=== PATIENT | female | born 1980 | race Caucasian/White ===

== ENCOUNTER → 2020-11-28 | Outpatient (CLI) | payer MEDICAID, OTHER ==
[~2020-11-28] MED LIST: DOCU-131 PO; HYDR1TAB13 PO; IBUP-1222 PO; VENL150C PO
== END | disposition home or self-care (01) ==
LOC: STAR 08:25
PROVIDERS: ATTEND Obstetrics & Gynecology Female Pelvic Medicine and Reconstructive Surgery
DX: Z20.822 Contact with and (suspected) exposure to COVID-19 (principal); N81.6 Rectocele; N81.10 Cystocele, unspecified; N39.3 Stress incontinence (female) (male); R10.2 Pelvic and perineal pain
CPT/HCPCS: 87635

== ENCOUNTER 2020-12-04 09:31 | Day surgery (SDC) | payer MEDICAID, OTHER ==
[~2020-12-04] VITALS: Ht 162.6 cm; Wt 98.4 kg
[~2020-12-04 09:31] MED LIST changes: +BUPIVACAINE/PF 0.25% ONE
[2020-12-04 10:20] VITALS: BP 116/84
[2020-12-04] MEDS ORDERED: CHLORHEXIDINE 15 ML UDC ONE (10:24)
[2020-12-04] MEDS ORDERED: CHLORHEXIDINE 15 ML UDC MM ONE (10:30)
[2020-12-04] MEDS ORDERED: LACTATED RINGERS 1,000 ML IV SCH (10:30)
[2020-12-04] MEDS ORDERED: FENTANYL PF 100 MCG/2ML ONE ×2 (10:58→14:09)
[2020-12-04] MEDS ORDERED: MIDAZOLAM 1 MG/ML, 2ML ONE (10:58)
[2020-12-04] MEDS ORDERED: ONDANSETRON 2MG/ML, 2ML IVPush PRN ×2 (11:00→15:30)
[2020-12-04] MEDS ORDERED: PROMETHAZINE 25 MG/ML, 1ML IVPush PRN (11:00)
[2020-12-04] MEDS ORDERED: HYDROmorphone 1 MG/ML, 1ML INJ IVPush PRN (11:00)
[2020-12-04] MEDS ORDERED: HYDROcodone/APAP 7.5-325MG/15ML UDC PO PRN (11:00)
[2020-12-04] MEDS ORDERED: FENTANYL PF 100 MCG/2ML IV PRN (11:00)
[2020-12-04] MEDS ORDERED: KETOROLAC 30 MG/1 ML IVPush PRN (11:00)
[2020-12-04] MEDS ORDERED: OXYcodone 5 MG/5 ML ORAL.SOL UDC PO PRN (11:00)
[2020-12-04] MEDS ORDERED: MEPERIDINE/PF 25MG/0.5ML IVPush PRN (11:00)
[2020-12-04 12:12] LABS: HCG UR SG 1.024 (1.003-1.030)
[2020-12-04] MEDS ORDERED: PROPOFOL 10 MG/ML, 20ML ONE (12:20)
[2020-12-04] MEDS ORDERED: CEFAZOLIN 1,000 MG ONE (12:20)
[2020-12-04] MEDS ORDERED: SUCCINYLCHOLINE 20 MG/ML, 10ML ONE (12:20)
[2020-12-04] MEDS ORDERED: LIDOCAINE-MPF 2% ,5ML ONE (12:20)
[2020-12-04] MEDS ORDERED: ROCURONIUM 10MG/ML,5ML ONE (12:20)
[2020-12-04] MEDS ORDERED: LIDOCAINE 4%, 4 ML SYR/CANN TP ONE (12:20)
[2020-12-04] MEDS ORDERED: SUGAMMADEX 200 MG/2 ML IVPush ONE (12:20)
[2020-12-04] MEDS ORDERED: PHENYLEPHRINE 10 MG/ML ONE (12:20)
[2020-12-04] MEDS ORDERED: HYDROcodone/APAP 7.5-325MG/15ML UDC ONE (14:21)
[2020-12-04] MEDS ORDERED: NEOMY/POLYMYXIN B GU IRR. 1 ML ONE (14:51)
== END 2020-12-04 16:30 | disposition home or self-care (01) ==
LOC: OUT 09:31
PROVIDERS: ATTEND Obstetrics & Gynecology Female Pelvic Medicine and Reconstructive Surgery
DX: N39.3 Stress incontinence (female) (male) (principal); N94.6 Dysmenorrhea, unspecified; N92.0 Excessive and frequent menstruation with regular cycle; F32.9 Major depressive disorder, single episode, unspecified; E66.9 Obesity, unspecified; Z98.890 Other specified postprocedural states; Z79.899 Other long term (current) drug therapy; Z68.37 Body mass index [BMI] 37.0-37.9, adult; Z72.89 Other problems related to lifestyle; Z82.49 Family history of ischemic heart disease and other diseases of the circulatory system
CPT/HCPCS: 57265; 57282; 57288; 58563; 58670; 81025; 88305; C1771; J0330; J0690; J2250; J2370; J2405; J2704; J3010; J7120